=== PATIENT | male | born 1960 | race Caucasian/White ===

== ENCOUNTER → 2024-12-06 07:30 | Outpatient (REF) | payer BC, SELFPAY | LOC: RAD 07:30 | PROVIDERS: ATTENDING PHYSICIAN Dermatology MOHS-Micrographic Surgery; FAMILY PHYSICIAN Family Medicine | DX: D17.0 Benign lipomatous neoplasm of skin and subcutaneous tissue of head, face and neck (principal); Z85.820 Personal history of malignant melanoma of skin | CPT/HCPCS: 76536; 76882 ==